=== PATIENT | male | born 1955 | race Caucasian/White ===

== ENCOUNTER 2018-06-11 18:41 | Emergency (ER) | payer MEDICARE ==
[~2018-06-11] VITALS: Ht 180.3 cm; Wt 68.8 kg
[2018-06-11 19:07] VITALS: BP 124/76
[2018-06-11] MEDS ORDERED: HYDROcodone/acetaminophen 10/325mg tab PO ONE (20:25)
[2018-06-11] MEDS ORDERED: NAPR-56 PO (20:29)
== END 2018-06-11 20:43 | disposition home or self-care (01) ==
LOC: ER 18:42
DX: M25.551 Pain in right hip (principal); M19.90 Unspecified osteoarthritis, unspecified site; W00.2XXA Other fall from one level to another due to ice and snow, initial encounter; Y93.89 Activity, other specified; Y92.89 Other specified places as the place of occurrence of the external cause; Y99.9 Unspecified external cause status
CPT/HCPCS: 73502; 99283

== ENCOUNTER 2023-04-27 18:14 | Emergency (ER) | payer MEDICARE ==
[~2023-04-27] VITALS: Ht 185.4 cm; Wt 72.0 kg
[~2023-04-27 18:14] MED LIST: ASPI-1071 PO; COR3.125T PO; NOR5T PO
[2023-04-27 18:19] VITALS: BP 146/77; PULSE 93; RESP 18; TEMP 98.3; O2SAT 99
[2023-04-27] MEDS ORDERED: CefTRIAXone 1000mg IM Kit (w/lidocaine diluent) IM ONE (18:25)
[2023-04-27] MEDS ORDERED: sulfamethoxazole/trimethoprim DS (800/160mg) tablet PO ONE (18:25)
[2023-04-27] MEDS ORDERED: CEPH-585 PO (18:30)
[2023-04-27] MEDS ORDERED: SULF1TAB49 PO (18:30)
== END 2023-04-27 19:29 | disposition home or self-care (01) ==
LOC: ER 18:15
DX: L03.113 Cellulitis of right upper limb (principal); Z79.899 Other long term (current) drug therapy
CPT/HCPCS: 96372; 99283; J0696

== ENCOUNTER 2023-05-11 15:43 | Emergency (ER) | payer MEDICARE ==
[~2023-05-11] VITALS: Ht 188 cm; Wt 69.9 kg
[2023-05-11 15:52] VITALS: BP 150/83; PULSE 84; RESP 16; TEMP 98; O2SAT 99
[2023-05-11] MEDS ORDERED: AMLO2.5T2 PO (16:09)
[2023-05-11] MEDS ORDERED: CARV-50 PO (16:09)
== END 2023-05-11 16:19 | disposition home or self-care (01) ==
LOC: ER 15:44
DX: I10 Essential (primary) hypertension (principal); Z76.0 Encounter for issue of repeat prescription; Z79.899 Other long term (current) drug therapy
CPT/HCPCS: 99281

== ENCOUNTER 2023-07-13 14:11 | Emergency (ER) | payer MEDICARE ==
[~2023-07-13] VITALS: Ht 188 cm; Wt 71.9 kg
[2023-07-13 14:15] VITALS: BP 129/74; PULSE 80; RESP 16; TEMP 98; O2SAT 98
[2023-07-13] MEDS ORDERED: NOR5T PO (15:18)
[2023-07-13] MEDS ORDERED: CARV-50 PO (15:18)
== END 2023-07-13 15:44 | disposition home or self-care (01) ==
LOC: ER 14:12
DX: I10 Essential (primary) hypertension (principal); Z76.0 Encounter for issue of repeat prescription; Z60.2 Problems related to living alone
CPT/HCPCS: 99281